=== PATIENT | female | born 1960 | race Caucasian/White ===

== ENCOUNTER → 2021-01-30 12:31 | Outpatient (CLI) | payer BC, SELFPAY | PROVIDERS: Visit Provider Nurse Practitioner | DX: Z20.822 Contact with and (suspected) exposure to COVID-19 (principal) | CPT/HCPCS: C9803; U0003; U0005 ==

== ENCOUNTER → 2021-02-09 13:52 | Outpatient (CLI) | payer BC, SELFPAY ==
[2021-02-09 16:09] LABS: Influenza A, PCR Not Detected (NotDetected); Influenza B, PCR Not Detected (NotDetected)
[2021-02-09 16:37] LABS: Coronavirus 19, PCR Detected (NotDetected)
== END ==
PROVIDERS: PCP Nurse Practitioner Family; Visit Provider Nurse Practitioner Family
DX: U07.1 COVID-19 (principal)
CPT/HCPCS: C9803; U0003; U0005

== ENCOUNTER 2021-02-12 08:57 | Outpatient (CLI) | payer BC, SELFPAY ==
[2021-02-12] VITALS (9 sets, daily range): BP systolic 104–143; BP diastolic 62–82; PULSE 62–69; RESP 14–98; TEMP 37.2; O2SAT 97–100
== END 2021-02-12 11:14 | disposition home or self-care (01) ==
LOC: COVID.OUT 08:57
PROVIDERS: PCP Nurse Practitioner Family; Visit Provider Nurse Practitioner Family
DX: U07.1 COVID-19 (principal); Z23 Encounter for immunization
CPT/HCPCS: 96365

== ENCOUNTER 2022-04-18 13:15 | Outpatient (RCR) | payer BC, SELFPAY | END 2022-04-18 13:20 | disposition home or self-care (01) | LOC: PT 13:15 | DX: M25.561 Pain in right knee (principal) | CPT/HCPCS: 97163 ==

== ENCOUNTER 2023-11-26 09:23 | Emergency (ER) | payer BC, SELFPAY ==
[2023-11-26 09:41] VITALS: BP 136/76; PULSE 61; RESP 18; TEMP 37; O2SAT 100; BMI 21.6
--- NOTE | 2023-11-26 09:44 | XR_ITS ---
FINAL REPORT CLINICAL HISTORY: pain in right hip bent over and stated she had right hip/lbp pain FINDINGS: Right hip Three views were obtained. There is no acute fracture or dislocation. The joint spaces appear normal. No soft tissue abnormality is identified. IMPRESSION: No acute process. Reviewed, Interpreted and Dictated by Toby Arthur MD Transcribed by Octavia Gallego Authenticated and [facility]
--- NOTE | 2023-11-26 09:44 | XR_ITS ---
FINAL REPORT CLINICAL HISTORY: low back pain FINDINGS: LUMBAR SPINE Five views demonstrate no acute fracture. There is advanced disc space narrowing at L4-5 and L5-S1. There is 15 degrees lumbar scoliosis convex to the left. There is no malalignment. IMPRESSION: Advanced degenerative disc disease at L4-5 and L5-S1. Reviewed, Interpreted and Dictated by Toby Arthur MD Transcribed by Octavia Gallego Authenticated and [facility]
--- NOTE | 2023-11-26 09:45 | EXP.UTC ---
Discharge Plan Disposition Patient Disposition: Home, Self-Care Condition: Good Prescriptions Prescriptions: New etodolac 200 mg capsule 200 mg PO Q8H PRN (Reason: pain) Qty: 20 0RF lidocaine 5 % adhesive patch,medicated 1 patch topical DAILY PRN (Reason: pain) Qty: 15 0RF Rx Instructions: leave on most painful area for up to 12 hrs then remove for 12 hours methocarbamol 500 mg tablet 500 mg PO TID PRN (Reason: muscle spasm) Qty: 12 0RF Referrals Follow up/Referrals: Provider,Referral, MD [Primary Care Provider] - See instructions Activity Restrictions/Add. Instructions Additional Instructions/Restrictions: *Etodolac leighton 8 hours with meal as needed for pain/inflammation *Remember you had a Toradol shot in the clinic today, which is similar to Etodolac so do not start for the next 8hrs *Not additional anti-inflammatory like Ibuprofen, motrin, aleve, advil with the above amount of Etodolac You can still take Tylenol every 4 hours as needed if you need something else for pain *Ice 20 minutes every 2 hours for the first 48 hours after the initial injury followed by moist heat every 20 minutes 3-4 times a day to affected area *Muscle relaxer every 8 hours as needed for muscle spasms but remember, it WILL cause drowsiness You cannot take it and drive, operate machinery or care for small children. Use topical Lidocaine patches as prescribed *Keep this area active, no movement leads to more stiffness, However take it easy and avoid heavy lifting pushing or pulling *Follow up with you family doctor if no improvement for further treatment ? Clinical Impressions Clinical Impression: Low back pain Qualifiers: Chronicity: unspecified Back pain laterality: right Sciatica presence: without sciatica Qualified Code(s): M54.50 - Low back pain, unspecified Instructions Patient Instructions: DI for Back Pain With Sciatica, Etodolac, DI for Muscle Spasm Print Language Print Language: Occitan Discharge ED Provider: Delfina Viramontes [facility] General Stated complaint: R hip pain Mode of Arrival: Ambulatory Source of Information: Patient Limitations: Physical Limitations Time Seen by Provider: 11/26/23 09:45 Description of Symptoms (Recalled from Triage Doc. by RN): RIGHT HIP PAINFUL, CAN NOT BEAR WEIGHT ON IT. 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 and when she raised up she was having pain in her lower back and right hip area Denies falling denies known injury States that pain shoots from lower back into right hip and upper leg States she had Sciatica before but this doesnt feel like it did then States she has pain in her right hip area when she tries to put weight on her leg States she has been taking advil but hasnt helped much Related Data Previous Rx's ?Medication ?Instructions ?Recorded etodolac 200 mg capsule 200 mg PO Q8H PRN pain #20 caps 11/26/23 lidocaine 5 % topical patch 1 patch topical DAILY PRN pain #15 11/26/23 ea methocarbamol 500 mg tablet 500 mg PO TID PRN muscle spasm #12 11/26/23 tabs Allergies Allergy/AdvReac Type Severity Reaction Status Date / Time Penicillins Allergy Mild Rash Verified 11/26/23 09:45 latex Allergy Rash Verified 11/26/23 09:45 Worker's Comp Is this a Worker's Comp case?: No [facility] Disclaimer: The information contained in this section may have been updated after the patient was seen, as this information can be updated by other users. Social History Smoking Status: Unknown if ever smoked alcohol intake: never current occupational status: retired Travel in the last 8 weeks: None ROS Obtained: Yes All systems reviewed & no additional complaints except as documented and Yes Systems reviewed as appropriate & no additional complaints except as documented Constitutional Constitutional: Reports system reviewed and no additional complaints, except as documented and Reports as per HPI Eyes Eyes: Reports system reviewed and no additional complaints, except as documented and Reports as per HPI ENT Ears, Nose, Mouth, and Throat: Reports system reviewed and no additional complaints, except as documented and Reports as per HPI Cardiovascular Cardiovascular: Reports system reviewed and no additional complaints, except as documented and Reports as per HPI Respiratory Respiratory: Reports system reviewed and no additional complaints, except as documented and Reports as per HPI Gastrointestinal Gastrointestingal: Reports system reviewed and no additional complaints, except as documented and as per HPI Musculoskeletal Musculoskeletal: Reports system reviewed and no additional complaints, except as documented, Reports as per HPI and Reports other (pain in lower back and pain in right hip after bending over yesterday ) Physical Exam General General appearance: alert and in no apparent distress ENT ENT exam: Present mucous membranes moist Respiratory Respiratory exam: Present normal lung sounds bilaterally; Absent respiratory distress or wheezes Cardiovascular Cardiovascular exam: Present regular rate, normal rhythm and normal heart sounds Back Exam Back exam: Present tenderness, muscle spasm and sciatic notch tenderness (R) Back 1 view image: 1. reports pain with movement that goes from lower back, into buttock area and upper leg Denies falling, denies known injury Denies loss of control of bowel or bladder Neurological Exam Neurological exam: Present alert, oriented X3 and normal gait Medical Decision Making Medical Records Screening: Per USPSTF and CDC recommendations, given the prevalence of disease in our region, it is our hospital?s policy to screen for HIV and viral Hepatitis for all patients aged 18 and over and those with ongoing risk factors. [place] Inquiry Pt receiving controlled substance: No [place] was queried for this patient: No Vital Signs: 11/26/23 09:41 Temperature 98.6 F Temperature Source Oral Pulse Rate [Left Brachial] 61 Respiratory Rate 18 Blood Pressure [Left Arm] 136/76 Blood Pressure Mean [Left Arm] 96 02 Sat by Pulse Oximetry 100 Orders (Tests/Meds): ORDERS Category Date Time Status Lumbar spine minimum 4 views [XR lumbar spine min 4V] Exams 11/26/23 09:44 Ordered Stat XR hip RT 2-3V w/pelvis Stat Exams 11/26/23 09:44 Ordered Radiology Data #1: Image(s): Hip (right with pelvis) Image Reviewed: Yes I have reviewed radiologist's interpretation IMPRESSION: No acute process. #2: Image(s): L-Spine Image Reviewed: Yes I have reviewed radiologist's interpretation FINDINGS: LUMBAR SPINE Five views demonstrate no acute fracture. There is advanced disc space narrowing at L4-5 and L5-S1. There is 15 degrees lumbar scoliosis convex to the left. There is no malalignment. IMPRESSION: Advanced degenerative disc disease at L4-5 and L5-S1.
[2023-11-26] MEDS: METHYLPREDNISOLONE SOD SUCC 125MG VIAL 125 MG IM (11:19)
[2023-11-26] MEDS: KETOROLAC 30MG/ML VIAL 30 MG IM (11:19)
[2023-11-26 11:38] VITALS: BP 136/76; PULSE 61; RESP 18; TEMP 37
== END 2023-11-26 11:38 | disposition home or self-care (01) ==
PROVIDERS: Emergency Provider Nurse Practitioner
DX: M54.50 Low back pain, unspecified (principal); M25.551 Pain in right hip
CPT/HCPCS: 72110; 73502; 96372; 99212; G0381; J1885; J2919

== ENCOUNTER 2023-12-22 10:58 | Outpatient (RCR) | payer BC, SELFPAY | END 2023-12-22 23:59 | disposition home or self-care (01) | LOC: PT 10:58 | PROVIDERS: Visit Provider Internal Medicine | DX: M51.369 Other intervertebral disc degeneration, lumbar region without mention of lumbar back pain or lower extremity pain (principal) | CPT/HCPCS: 97163 ==